=== PATIENT | male | born 1970 | race Caucasian/White ===

== ENCOUNTER 2019-12-24 10:33 | Emergency (ER) | payer BC ==
[~2019-12-24] VITALS: Ht 175.3 cm; Wt 98.2 kg
[2019-12-24 10:49] VITALS: BP 148/65
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
== END 2019-12-24 11:07 | disposition home or self-care (01) ==
LOC: ER 10:33
DX: S60.221A Contusion of right hand, initial encounter (principal); W22.8XXA Striking against or struck by other objects, initial encounter; Y93.89 Activity, other specified; Y92.89 Other specified places as the place of occurrence of the external cause; Y99.8 Other external cause status
CPT/HCPCS: 73130; 99283